=== PATIENT | female | born 1980 | race Caucasian/White ===

== ENCOUNTER 2017-02-02 06:57 | Day surgery (SDC) | payer BC ==
[2017-02-02] VITALS (7 sets, daily range): BP systolic 110–130; BP diastolic 65–96; PULSE 47–70; TEMP 97.3–97.4
[~2017-02-02] VITALS: Ht 174 cm; Wt 63.4 kg
[~2017-02-02 06:57] MED LIST: AMOXICILLIN 8751 TAB PO; ASPIRIN 81M81 MG/TA2 PO; BIRTH CONTROL PATCH; LORTAB 5/500 501 TAB PO; LOVENOX 100100 MG/ML SQ; MAG-OX 400400 MG/TAB PO; MIRALAX PA17 GM/Dose PO; NORCO 325 MG-51 TAB PO; PRIL40 PO; SPRINTEC 35 MCG1 TAB PO; TYLENOL 325MG325 MG PO; TYLENOL W/COD1 UDTAB PO; XARELTO20 MG PO
== END 2017-02-02 13:05 | disposition home or self-care (01) ==
LOC: SDCO 06:57
DX: K62.5 Hemorrhage of anus and rectum (principal); K64.8 Other hemorrhoids; K62.89 Other specified diseases of anus and rectum; K60.1 Chronic anal fissure; K59.09 Other constipation; G43.909 Migraine, unspecified, not intractable, without status migrainosus; K75.9 Inflammatory liver disease, unspecified; D68.2 Hereditary deficiency of other clotting factors; Z86.711 Personal history of pulmonary embolism
CPT/HCPCS: J0690; J1100; J1885; J2405; J2704; J3010; J7120

== ENCOUNTER 2017-06-04 00:06 | Emergency (ER) | payer SELFPAY ==
[~2017-06-04] VITALS: Ht 175.3 cm; Wt 61.4 kg
[2017-06-04 00:08] VITALS: TEMP 97.1
[2017-06-04 00:40] LABS: BASO % 0.3 % (0.0-2.0); EOS # 0.1 (0.0-0.7); EOS % 1.1 % (0-4.0); GRAN # 6.3 (1.4-6.5); GRAN % 63.5 % (42.2-75.2); HEMATOCRIT 40.8 % (37.0-47.0); HEMOGLOBIN 13.4 g/dl (12.5-16.0); LYMPH # 2.7 (1.2-3.4); MEAN CELL VOLUME 95 fl (80.0-100.0); MEAN CORPUSCULAR HEMOGLOBIN 31 pg (27.0-31.0); MEAN CORPUSCULAR HGB CONC 33 g/dl (33.0-37.0); MEAN PLATELET VOLUME 10.6 fl (7.4-10.4); MONO # 0.8 (0.1-0.6); MONO % 7.8 % (1.7-9.3); PLATELET COUNT 236 K/mm3 (130-400); REDCELL DISTRIBUTION WIDTH-CV 12.7 % (11.5-14.5)
[2017-06-04 00:45] LABS: PROTHROMBIN TIME 11.2 SECONDS (9.7-12.8)
[2017-06-04 00:47] LABS: PARTIAL THROMBOPLASTIN TIME 27.9 SECONDS (26.0-37.0)
[2017-06-04 00:49] LABS: ADJUSTED CALCIUM 9.3 mg/dL (8.4-10.2); ALANINE AMINOTRANSFERASE 22 U/L (9-52); ALKALINE PHOSPHATASE 75 U/L (50-136); ANION GAP 11 mmol/L (7-16); BILIRUBIN,TOTAL 0.5 mg/dL (0.0-1.0); BLOOD UREA NITROGEN 11 mg/dL (7-17); CALCIUM 9.3 mg/dL (8.4-10.2); CARBON DIOXIDE 26 mmol/L (22-30); CHLORIDE 103 mmol/L (98-107); CREATININE, serum 0.86 mg/dL (0.52-1.25); GLUCOSE 97 mg/dL (74-106); POTASSIUM 3.6 mmol/L (3.4-5.0); SODIUM 139 mmol/L (137-145)
[2017-06-04 01:01] LABS: TROPONIN-I < 0.012 ng/mL (0.000-0.034)
[2017-06-04] MEDS ORDERED: NITROSTAT0.4 MG/TAB SL (01:37)
[2017-06-04 01:52] VITALS: BP 111/87; PULSE 57
== END 2017-06-04 01:52 | disposition home or self-care (01) ==
LOC: COL.ER 00:06
PROVIDERS: Family Medicine
DX: R07.89 Other chest pain (principal); Z79.82 Long term (current) use of aspirin

== ENCOUNTER → 2018-01-20 | Outpatient (CLI) | payer OTHER ==
[~2018-01-20] MED LIST changes: +NITROSTAT0.4 MG/TAB SL
== END ==
LOC: COL.RAD 07:22
DX: R05 Cough (principal); R06.02 Shortness of breath; Z86.711 Personal history of pulmonary embolism; Z90.49 Acquired absence of other specified parts of digestive tract
CPT/HCPCS: Q9967

== ENCOUNTER → 2018-08-01 | Outpatient (CLI) | payer OTHER | LOC: MC.RAD 06:54 | DX: N63.12 Unspecified lump in the right breast, upper inner quadrant (principal) ==

== ENCOUNTER → 2019-06-11 | Outpatient (CLI) | payer BC | LOC: MC.RAD 07:30 | DX: Z12.31 Encounter for screening mammogram for malignant neoplasm of breast (principal); N64.4 Mastodynia | CPT/HCPCS: G0279 ==

== ENCOUNTER → 2019-07-13 | Outpatient (CLI) | payer BC | LOC: MC.RAD 13:44 | DX: N63.20 Unspecified lump in the left breast, unspecified quadrant (principal) ==

== ENCOUNTER → 2019-07-31 | Outpatient (CLI) | payer BC | LOC: MC.RAD 07:35 | DX: N60.02 Solitary cyst of left breast (principal) ==

== ENCOUNTER → 2020-06-25 | Outpatient (CLI) | payer BC | LOC: MC.RAD 11:09 | DX: Z12.31 Encounter for screening mammogram for malignant neoplasm of breast (principal) ==

== ENCOUNTER 2024-05-07 16:26 | Emergency (ER) | payer BC ==
[~2024-05-07] VITALS: Ht 175.3 cm; Wt 85.9 kg
[2024-05-07 16:29] VITALS: BP 117/83; TEMP 98.2
[2024-05-07 18:34] VITALS: PULSE 83
== END 2024-05-07 18:36 | disposition home or self-care (01) ==
LOC: COL.ER 16:26
DX: S96.911A Strain of unspecified muscle and tendon at ankle and foot level, right foot, initial encounter (principal); S80.11XA Contusion of right lower leg, initial encounter; W10.8XXA Fall (on) (from) other stairs and steps, initial encounter; X50.1XXA Overexertion from prolonged static or awkward postures, initial encounter